=== PATIENT | male | born 1960 | race Hispanic/Latino ===

== ENCOUNTER 2021-07-04 10:31 | Outpatient (CLI) | payer OTHER | END 2021-07-04 10:32 | disposition home or self-care (01) | LOC: CSHRAD 10:31 | PROVIDERS: ATTEND Family Medicine | DX: M79.641 Pain in right hand (principal); M79.642 Pain in left hand; M19.042 Primary osteoarthritis, left hand; M19.041 Primary osteoarthritis, right hand; S60.551A Superficial foreign body of right hand, initial encounter ==

== ENCOUNTER 2022-01-14 10:54 | Outpatient (CLI) | payer OTHER | END 2022-01-14 10:55 | disposition home or self-care (01) | LOC: CSHRAD 10:54 | PROVIDERS: ATTEND Family Medicine | DX: M53.3 Sacrococcygeal disorders, not elsewhere classified (principal); M47.816 Spondylosis without myelopathy or radiculopathy, lumbar region | CPT/HCPCS: 72100; 72220 ==